=== PATIENT | male | born 1955 | race Two or more races ===

== ENCOUNTER → 2024-08-16 | Emergency (ER) | payer OTHER ==
[~2024-08-16] VITALS: Ht 167.6 cm; Wt 89.8 kg
[~2024-08-16] MED LIST: ADULT LOW DOSE81 M1; CEFTRIAXONE SODIUM 1,000 MG VIAL IM ONE; LIPITOR20 MG PO; LOSARTAN-HCTZ1 EAC2 PO; SYNTHROID75 MCG PO; TETANUS & DIPHTHERIA TOX,ADULT 0.5 ML VIAL IM ONE
== END | disposition home or self-care (01) ==
LOC: ER 21:49
DX: S90.811A Abrasion, right foot, initial encounter (principal); X58.XXXA Exposure to other specified factors, initial encounter; Y93.89 Activity, other specified; Y92.89 Other specified places as the place of occurrence of the external cause; Y99.8 Other external cause status
CPT/HCPCS: 90471; 90714; 96372; 99282; J0696; J1670